=== PATIENT | male | born 1985 | race African-American/Black ===

== ENCOUNTER 2021-05-30 11:17 | Emergency (ER) | payer SELFPAY ==
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
[2021-05-30 11:45] VITALS: BP 174/98; PULSE 82; RESP 14; TEMP 36.9; O2SAT 100
--- NOTE | 2021-05-30 12:16 | ECG_ITS ---
Measurements Intervals [place] Rate: 66 P: 38 ID: 130 QRS: 73 QRSD: 94 T: -83 QT: 368 QTc: 387 Interpretive Statements SINUS RHYTHM ST ELEVATION CONSISTENT WITH INJURY, PERICARDITIS, OR EARLY REPOLARIZATION BORDERLINE T WAVE ABNORMALITY- INFERIOR LEADS ABNORMAL ECG Electronically Signed On 05-30-2021 13:37:32 CDT by Lacho Johansen D.O.
--- NOTE | 2021-05-30 12:22 | ED.URI ---
HPI - URI/Sore Throat General Chief Complaint: Upper Respiratory Infection Stated Complaint: COLD/BODY ACHES Time Seen by Provider: 05/30/21 11:55 Source: patient Mode of arrival: ambulatory Limitations: no limitations History of Present Illness HPI Narrative: This is a 35-year-old male that presents to the emergency department for cold symptoms present since this morning. Reports chills, myalgias, cough, and sore throat. Reports he is Covid vaccinated. He had a rapid swab done this morning which was negative. Reports a sharp left-sided chest pain with coughing. Reports he feels like he cannot catch his breath. Does report history of asthma and that he is currently out of his albuterol inhaler. Denies fever, or lower extremity edema. Related Data Home Medications Medication Instructions Recorded Confirmed No Home Medications 05/30/21 05/30/21 Allergies Allergy/AdvReac Type Severity Reaction Status Date / Time No Known Allergies Allergy Verified 05/30/21 12:00 Review of Systems Review of Systems: CONSTITUTIONAL: Denies fever CARDIOVASCULAR: Reports chest pain. Denies edema. RESPIRATORY: Reports cough and dyspnea. All systems reviewed & are unremarkable except as noted in HPI and below PMFSH Past Medical History Medical History (Updated 05/30/21 @ 15:03 by Hortensia Isaacs PA-C) History of asthma Social History Social History (Updated 05/30/21 @ 12:27 by Hortensia Isaacs PA-C) Substance use: never Exam Narrative: GENERAL: Well-appearing, well-nourished, and in no acute distress. HEAD: Normocephalic, atraumatic. EYES: EOMI. ENT: Nares clear, no rhinorrhea or epistaxis. Mucous membranes moist. Oropharynx with mild erythema; no tonsillar hypertrophy, exudate or other lesions. Bilateral TMs pearly blue non-bulging NECK: Supple. No adenopathy or masses. CHEST: Clear to auscultation. No respiratory distress. No wheezes rales or rhonchi HEART: Regular rate and rhythm. No murmur heard. Normal peripheral pulses. EXTREMITIES: Normal range of motion. No edema. SKIN: Warm, dry, no rash. NEURO: No focal deficits. Alert and oriented x3. PSYCH: Normal mood and affect Course Vital Signs Vital signs: Vital Signs Temperature 98.4 F 05/30/21 11:45 Pulse Rate 82 05/30/21 11:45 Respiratory Rate 14 05/30/21 11:45 Blood Pressure 174/98 H 05/30/21 11:45 Pulse Oximetry 100 05/30/21 11:45 Temperature 98.4 F 05/30/21 11:45 Pulse Rate 82 05/30/21 11:45 Respiratory Rate 14 05/30/21 11:45 Blood Pressure 174/98 H 05/30/21 11:45 Pulse Oximetry 100 05/30/21 11:45 MDM - URI/Sore Throat MDM Narrative Medical decision making narrative: Patient presents to the ER for cold symptoms present since this morning. Reporting cough, congestion, myalgias, chest pain and shortness of breath. Chest pain does seem more musculoskeletal in nature. Reports mostly happening with cough. Reports feelings of shortness of breath that were relieved with Albuterol inhaler. No concerning wheezing or other concerning findings on exam. Oxygen saturation has remained normal on room air. CBC and metabolic panel without concerning findings. EKG with ST changes consistent with likely early repolarization. Patient's baseline troponin was negative. Influenza and strep screen are negative. SARS-CoV-2 was sent. Chest x-ray without acute cardiopulmonary abnormality. Patient was updated on case findings. I did speak with patient about obtaining a 3 hour troponin. He does not want to stay for any further evaluation. Reports he feels better with Albuterol and his pain was relieved with Toradol. He was instructed to come back at any time for further evaluation and management. He was instructed to have close follow up with primary care provider Lab Data Attestation: I reviewed the patient's lab results. Result diagrams: 05/30/21 12:52 05/30/21 12:52 Labs: Lab Results 05/30/21 05/30/21 05/30/21
[2021-05-30] MEDS: ALBUTEROL SULFATE (*SP) AEROSOL 1 PUFF 2 PUFF INHALATION (12:24)
[2021-05-30 13:08] LABS: Basophils Absolute Auto 0.1 K/mm3 (0.0-0.1); Basophils Percent Auto 0.7 % (0.2-1.2); Eosinophils Absolute Auto 0.2 K/mm3 (0-0.3); Eosinophils Percent Auto 1.6 % (0-4.4); Hematocrit 43.9 % (42.0-52.0); Hemoglobin 15.2 g/dL (14.0-18.0); Immature Granulocyte Absolute 0.03 K/mm3 (0.00-0.031); Immature Granulocyte Percent A 0.3 % (0-0.5); Lymphocytes Absolute Auto 2.55 K/mm3 (0.9-3.2); Lymphocytes Percent Auto 27.7 % (18.3-44.2); Mean Corpuscular HGB Conc 34.6 g/dl (32-36); Mean Corpuscular Volume 98.2 fl (80-100); Monocytes Absolute Auto 0.6 K/mm3 (0.1-0.6); Monocytes Percent Auto 6.6 % (2.6-8.5); Neutrophils Absolute Auto 5.8 K/mm3 (1.3-6.7); Neutrophils Percent Auto 63.1 % (45.5-73.1); Platelet Count Result 173 k/mm3 (150-375); Red Blood Count 4.47 M/mm3 (4.6-6.20); Red Cell Distribution Width 14.5 % (11.5-14.5); White Blood Count 9.2 K/mm3 (4.5-10.0)
[2021-05-30 13:11] LABS: Partial Thromboplastin Time 26.4 SECONDS (22.3-36.8); Prothrombin Time 12.7 Seconds (11.1-14.7)
[2021-05-30] MEDS: KETOROLAC (*BKC) 60 MG/2 ML VIAL IM (13:16)
[2021-05-30 13:55] LABS: Anion Gap 15 mmol/L (8-16); Blood Urea Nitrogen 10 mg/dL (9-20); Calcium 9.9 mg/dL (8.4-10.2); Carbon Dioxide 23 mmol/L (22-30); Chloride 108 mmol/L (98-107); Estimated CRCL calculation 130 ml/min; Estimated Glomerular Filt Rate > 60; Glucose 96 mg/dL (65-110); Potassium 3.7 mmol/L (3.4-5.0); Sodium 146 mmol/L (137-145)
[2021-05-30 14:07] LABS: Troponin I < 0.012 ng/mL (0.000-0.034)
--- NOTE | 2021-05-30 14:53 | PC.NURSE ---
pt. walked out to triage stating If they are looking for me i am leaving. I have been waiting in that room for a whole hour asking for water. That s fucking bullshit.
[2021-05-31 17:30] LABS: SARS-CoV-2 RNA PCR Negative
== END 2021-05-30 14:45 | disposition home or self-care (01) ==
PROVIDERS: Physician Assistant; Emergency Provider Emergency Medicine
DX: Z20.822 Contact with and (suspected) exposure to COVID-19 (principal); R07.9 Chest pain, unspecified; I10 Essential (primary) hypertension; J45.909 Unspecified asthma, uncomplicated
CPT/HCPCS: 36415; 71045; 80048; 84484; 85025; 85610; 85730; 87081; 87804; 87880; 93005; 94640; 96372; 99283; A9270; C9803; J1885; U0003; U0005

== ENCOUNTER 2021-09-11 12:00 | Emergency (ER) | payer OTHER, SELFPAY ==
--- NOTE | ~2021-09-11 | CT_ITS ---
EXAMINATION: CT abdomen pelvis w con DATE: 09/11/2021 13:17 INDICATION: Abdominal pain, peritoneal. TECHNIQUE: Computed tomography (CT) of the abdomen and pelvis was performed with 100 mL Omnipaque 350 intravenous contrast. Automated exposure control and iterative reconstruction technique were employe d. The dose-length product was 231.02 mGy-cm. COMPARISON: None. FINDINGS: The visualized portions of the lung bases are clear without pneumonia or pleural effusion. The heart size is normal. No pericardial effusion. The liver, gallbladder, spleen, pancreas, adrenal glands, and kidneys are normal. There are no dilated loops of bowel. The appendix is normal. There ar e no pathologically enlarged lymph nodes. There is no free intraperitoneal fluid. There is mild lumba r spondylosis. IMPRESSION: 1. No etiology for the patient's symptoms. Reviewed, dictated and finalized at location A. [employer]
[2021-09-11 12:04] VITALS: BP 188/105; PULSE 100; RESP 18; TEMP 36.9; O2SAT 100
--- NOTE | 2021-09-11 12:23 | ED.ABDPAIN ---
HPI - Abdominal Pain General Chief Complaint: Abdominal Pain Stated Complaint: hernia Time Seen by Provider: 09/11/21 12:20 Source: patient Mode of arrival: ambulatory Limitations: no limitations History of Present Illness HPI narrative: The patient is a 35 yo male presenting to the ER for evaluation of abdominal pain. Patient reports pain with lifting heavy boxes at work three days ago. Pt reports left sided abdominal pain which is severe. He denies nausea, vomiting or diarrhea. He feels bloated/full, and reports tenderness throughout. Pt reports pain is worsened with laying certain positions. He denies fever, reports chills. He denies history of previous of abdominal surgeries. Related Data Allergies Allergy/AdvReac Type Severity Reaction Status Date / Time No Known Allergies Allergy Verified 09/11/21 12:29 Review of Systems Review of Systems: CONSTITUTIONAL: Denies fever, chills, diaphoretic EYES: Denies visual changes, redness, or discharge. ENT: Denies rhinorrhea, congestion, sore throat, or otalgia. CARDIOVASCULAR: Denies chest pain, palpitations, or edema. RESPIRATORY: Denies cough or dyspnea. GASTROINTESTINAL: Reports abdominal pain, denies nausea, vomiting, diarrhea GENITOURINARY: Denies dysuria or hematuria. SKIN: Denies rash or itching. MUSCULOSKELETAL: Denies back pain, joint pain, or myalgia. NEUROLOGIC: Denies headache, numbness, or weakness. [facility] Past Medical History Medical History (Updated 09/11/21 @ 15:11 by Evelyne Pereira MD) History of asthma Social History Social History (Updated 05/30/21 @ 12:27 by Hortensia Isaacs PA-C) Substance use: never Exam Narrative: GENERAL: Awake, alert, conversant, diaphoretic HEAD: Normocephalic, atraumatic. EYES: PERRLA and EOMI. ENT: Nares clear, no rhinorrhea or epistaxis. Mucous membranes moist. NECK: Supple. CHEST: No respiratory distress, breathing even and non labored HEART: Tachycardic rate, sinus rhythm ABDOMEN:Mildly distended, guarding throughout, EXTREMITIES: Normal range of motion. No edema. SKIN: Warm, dry, no rash. NEURO:No focal deficits. Alert and oriented x3 Course Vital Signs Vital signs: Vital Signs Temperature 36.9 C 09/11/21 12:04 Pulse Rate 100 09/11/21 12:04 Respiratory Rate 18 09/11/21 12:04 Blood Pressure 188/105 H 09/11/21 12:04 Pulse Oximetry 100 09/11/21 12:04 Temperature 36.9 C 09/11/21 12:04 Pulse Rate 100 09/11/21 12:04 Respiratory Rate 18 09/11/21 12:04 Blood Pressure 188/105 H 09/11/21 12:04 Pulse Oximetry 100 09/11/21 12:04 MDM - Abdominal Pain MDM Narrative Medical decision making narrative: Patient presented for evaluation of abdominal pain after heavy lifting with concern for possible hernia. At the time of assessment, patient is mildly diaphoretic, has tenderness in the left lower quadrant with guarding. Concern for peritoneal exam. IV access obtained and labs are drawn. Patient was given IV fluids, antiemetic, pain medication. Laboratory studies are very reassuring. No leukocytosis, no transaminitis. No urinary tract infection. No elevation in lipase. CT scan without acute etiology to explain the patient's symptoms. I spoke with radiologist Dr. Horta to discuss the scan, location of patient's pain, no scar concern for vascular abnormality, thrombus. Patient was then reassessed and was resting comfortably. No significant pain. Differential would include abdominal wall strain. Did consider ACS given atypical pain but really he has no chest pain, no acute EKG changes, no ST segment elevation or depression. Patient was instructed as to limitations of imaging and lab evaluation and encouraged to return to the emergency department or see his primary physician for repeat exam in 12 hours if continued or worsening pain. Differential Diagnosis Differential diagnosis: Likely abdominal pain, calculus of kidney, constipation, gastroenteritis, pancreatitis and small bowel obs
[2021-09-11 12:35] LABS: Basophils Percent Auto 0.4 % (0.2-1.2); Eosinophils Absolute Auto 0.2 K/mm3 (0-0.3); Hematocrit 42.5 % (42.0-52.0); Hemoglobin 14.8 g/dL (14.0-18.0); Immature Granulocyte Absolute 0.02 K/mm3 (0.00-0.031); Immature Granulocyte Percent A 0.2 % (0-0.5); Lymphocytes Absolute Auto 2.31 K/mm3 (0.9-3.2); Lymphocytes Percent Auto 27.5 % (18.3-44.2); Mean Corpuscular HGB Conc 34.8 g/dl (32-36); Mean Corpuscular Hemoglobin 33.3 pg (26-34); Mean Corpuscular Volume 95.7 fl (80-100); Mean Platelet Volume 9.8 fl (7.4-10.4); Monocytes Absolute Auto 0.6 K/mm3 (0.1-0.6); Monocytes Percent Auto 7.6 % (2.6-8.5); Neutrophils Absolute Auto 5.2 K/mm3 (1.3-6.7); Neutrophils Percent Auto 62.3 % (45.5-73.1); Platelet Count Result 195 k/mm3 (150-375); Red Blood Count 4.44 M/mm3 (4.6-6.20); Red Cell Distribution Width 14.1 % (11.5-14.5); White Blood Count 8.4 K/mm3 (4.5-10.0)
--- NOTE | 2021-09-11 12:41 | ECG_ITS ---
Measurements Intervals [place] Rate: 65 P: 61 MI: 150 QRS: 73 QRSD: 89 T: 24 QT: 369 QTc: 384 Interpretive Statements SINUS RHYTHM VOLTAGE CRITERIA FOR LVH BORDERLINE ECG Electronically Signed On 09-11-2021 14:00:23 [employer] by Lacho Johansen D.O.
[2021-09-11 12:50] LABS: Alanine Aminotransferase 15 U/L (4-50); Albumin Level 4.9 g/dL (3.5-5.1); Alkaline Phosphatase 62 U/L (38-126); Anion Gap 9 mmol/L (8-16); Aspartate Amino Transferase 28 U/L (17-59); Bilirubin,Total 0.3 mg/dL (0.2-1.3); Blood Urea Nitrogen 12 mg/dL (9-20); Calcium 9.1 mg/dL (8.4-10.2); Carbon Dioxide 26 mmol/L (22-30); Chloride 104 mmol/L (98-107); Estimated CRCL calculation 108 ml/min; Estimated Glomerular Filt Rate > 60; Glucose 149 mg/dL (65-110); Lipase 82 U/L (23-300); Sodium 139 mmol/L (137-145)
[2021-09-11] MEDS: SODIUM CHLORIDE 0.9% IV 1,000 ML 999 ML IV CONT (13:25)
[2021-09-11] MEDS: HYDROmorphone HCL INJ (*CRX) 1 MG/ML SYR 0.5 MG IV PUSH (13:26)
[2021-09-11] MEDS: ONDANSETRON INJ 4 MG/2 ML VIAL IV PUSH (13:26)
[2021-09-11 14:41] LABS: Troponin I < 0.012 ng/mL (0.000-0.034)
[2021-09-11 15:35] VITALS: BP 142/95; PULSE 81; RESP 16; TEMP 36.8; O2SAT 100
== END 2021-09-11 15:37 | disposition home or self-care (01) ==
PROVIDERS: Emergency Provider Emergency Medicine
DX: S39.011A Strain of muscle, fascia and tendon of abdomen, initial encounter (principal); J45.909 Unspecified asthma, uncomplicated; X50.0XXA Overexertion from strenuous movement or load, initial encounter
CPT/HCPCS: 36415; 74177; 80053; 83690; 84484; 85025; 86850; 86900; 86901; 93005; 96361; 96374; 96375; 99284; J1170; J2405; J7030; Q9967